=== PATIENT | male | born 1945 | race Hispanic/Latino ===

== ENCOUNTER → 2019-01-25 | Outpatient (CLI) | payer MEDICARE ==
[~2019-01-25] MED LIST: ASPIR 8181 MG PO; COREG3.125 MG PO; FLOMAX0.4 MG PO; METFORMIN HCL500 M1 PO; MOTION SICKNESS25 MG PO; PLAVIX75 MG PO; PRAVACHOL40 MG PO; PROSCAR5 MG PO; TRADJENTA5 MG PO
--- NOTE | 2019-01-25 10:38 | Diagnostic Imaging Report ---
Frontal and lateral views of the chest - 2 images Left clavicle - 2 images HISTORY: PAIN; S/P INJURY COMPARISON: None available. DISCUSSION: An implanted dual-lead left cardiac device. Lungs: The lungs are well inflated. No evidence of a consolidative pneumonia or pulmonary alveolar edema. Pleura: No pleural effusion or pneumothorax. Heart and mediastinum: The cardiomediastinal silhouette appears unremarkable. Multiple mediastinal surgical clips. Bones and soft tissues: Multiple median sternotomy wires, likely nondisplaced fracture of the right side of the third most proximal wire. Multiple metallic anchors at the humeral head. On one view of the clavicle, there is a subtle oblique lucency at the inferior cortex of the medial clavicle, this area is obscured on the remaining images. Mild superior subluxation of the humeral head. IMPRESSION: 1. Questionable nondisplaced fracture involving the medial aspect of the clavicle, correlate for focal point tenderness. 2. Mild age-indeterminate superior subluxation of the humeral head, which can be seen in the setting of a rotator cuff re-tear. If warranted, a follow-up CT arthrogram of the shoulder could be obtained to further evaluate the integrity of the rotator cuff. Signed by: Dr. Farhad Siu D.O., M.M.M. on 01/25/2019 10:34 AM
== END ==
LOC: RAD 09:20
PROVIDERS: ATTEND Internal Medicine
DX: M25.512 Pain in left shoulder (principal); S42.018A Nondisplaced fracture of sternal end of left clavicle, initial encounter for closed fracture
CPT/HCPCS: 71046

== ENCOUNTER → 2019-04-10 | Outpatient (CLI) | payer MEDICARE ==
--- NOTE | 2019-04-10 12:52 | Diagnostic Imaging Report ---
EXAMINATION: CHEST 2 VIEWS INDICATION: Cough. COMPARISON: Chest radiograph 01/25/2019. FINDINGS: TUBES and LINES: Left-sided AICD with leads overlying the right atrium and right ventricle. LUNGS: Lungs are moderately inflated. There is no evidence of pneumonia or pulmonary edema. Minimal patchy left basilar atelectasis. PLEURA: No pleural effusion or pneumothorax. HEART AND MEDIASTINUM: The cardiomediastinal silhouette is unremarkable. Status post CABG. BONES AND SOFT TISSUES: No acute osseous abnormality. Status post median sternotomy. UPPER ABDOMEN: No free air under the diaphragm. IMPRESSION: No acute radiographic abnormality. Signed by: Dr. Nai Garcia MD on 04/10/2019 12:49 PM
--- NOTE | 2019-04-10 12:54 | Diagnostic Imaging Report ---
Exam: Paranasal sinus radiographs-6 views History: Cough, congestion. Comparison: None. Findings: The paranasal sinuses appear clear. No evidence of acute fracture or malalignment. Impression: The paranasal sinuses are clear. Signed by: Dr. Nai Garcia MD on 04/10/2019 12:51 PM
== END ==
LOC: RAD 11:44
PROVIDERS: ATTEND Internal Medicine
DX: R05 Cough (principal); R09.81 Nasal congestion
CPT/HCPCS: 70220; 71046

== ENCOUNTER → 2019-05-15 | Day surgery (SDC) | payer MEDICARE ==
[2019-05-08 11:54] LABS: BASOPHILS # (AUTO) 0.1 (0.0-0.1); BASOPHILS % 0.8 % (0.0-1.0); EOSINOPHILS # (AUTO) 0.3 (0.0-0.4); EOSINOPHILS % 3.5 % (0.0-6.0); HEMATOCRIT 46.8 % (38.2-49.6); MEAN CORPUSCULAR HEMOGLOBIN 31.1 pg (28-32); MEAN CORPUSCULAR HGB CONC 32.1 g/dL (31-35); MEAN CORPUSCULAR VOLUME 97.1 fL (81-99); MONOCYTES # (AUTO) 0.7 (0.2-0.8); MONOCYTES % 9.2 % (4.4-11.3); NEUTROPHILS # (AUTO) 4.8 (2.1-6.9); NEUTROPHILS % 61.1 % (38.7-80.0); PLATELET COUNT 220 x10e3/uL (140-360); RED BLOOD COUNT 4.82 x10e6/uL (4.3-5.7); RED CELL DISTRIBUTION WIDTH 12.7 % (11.7-14.4)
[~2019-05-15] MED LIST changes: +ACETAMINOPHEN 1000 MG/100 ML IV ONE; +FENTANYL CITRATE/PF 100MCG/2 ML INJ ONE; +KETOROLAC TROMETHAMINE 30 MG/ML VIAL ONE; +MIDAZOLAM HCL 2 MG/2 ML VIAL ONE; +OR PHACO EYE KIT ONE; +PREOP PHACO EYE KIT ONE
--- OUTSIDE RECORDS SUMMARY | 2019-05-15 11:23 | XMS REPORT ---
Author Author [facility] Address Unknown Phone Unavailable Care Team Providers Care Event Marketing Intern Name Role Phone ROSAURA GEORGE Unavailable Unavailable Problems This patient has no known problems. Allergies, Adverse Reactions, Alerts This patient has no known allergies or adverse reactions. Medications This patient has no known medications. Results Test Description Test Time Test Comments Text Results Atomic Results Result Comments SINUSES (PARANASAL)MIN 3VIEWS 2019-04-10 12:49:[address] [address] Patient Name: LEATHA TOMLINSON MR #: [id number] : 1945 Age/Sex: 73/M Req #: [id number] Adm Physician: Ordered by: ROSAURA GEORGE MD Report #: [id number] Location: [facility] Room/Bed: Procedure: [id number] DX/SINUSES (PARANASAL)MIN 3VIEWS Exam Date: 04/10/19 Exam Time: 1145 REPORT STATUS: Signed Exam: Paranasal sinus radiographs-6 views History: Cough, congestion. Comparison: None. Findings: The paranasal sinuses appear clear. No evidence of acute fracture or malalignment. Impression: The paranasal sinuses are clear. Signed by: Dr. Justa Cooper MD on 04/10/2019 12:51 PM Dictated By: JUSTA COOPER MD 1251 Transcribed By: ELADIO on 04/10/19 1251 COPY TO: ROSAURA GEORGE MD CHEST 2 VIEWS 2019-04-10 12:47:00 [place] [id number] [place] [address] Patient Name: LEATHA TOMLINSON MR #: [id number] : 1945 Age/Sex: 73/M Req #: [id number] Adm Physician: Ordered by: ROSAURA GEORGE MD Report #: [id number] Location: [facility] Room/Bed: Procedure: [id number] DX/CHEST 2 VIEWS Exam Date: 04/10/19 Exam Time: 1145 REPORT STATUS: Signed EXAMINATION: CHEST 2 VIEWS INDICATION: Cough. COMPARISON: Chest radiograph 01/25/2019. FINDINGS: TUBES and LINES: Left-sided AICD with leads overlying the right atrium and right ventricle. LUNGS: Lungs are moderately inflated. There is no evidence of pneumonia or pulmonary edema. Minimal patchy left basilar atelectasis. PLEURA: No pleural effusion or pneumothorax. HEART AND MEDIASTINUM: The cardiomediastinal silhouette is unremarkable. Status post CABG. BONES AND SOFT TISSUES: No acute osseous abnormality. Status post median sternotomy. UPPER ABDOMEN: No free air under the diaphragm. IMPRESSION: No acute radiographic abnormality. Signed by: Dr. Justa Cooper MD on 04/10/2019 12:49 PM Dictated By: JUSTA COOPER MD 1249 Transcribed By: ELADIO on 04/10/19 1249 COPY TO: ROSAURA GEORGE MD CLAVICLE LEFT 2019-01-25 10:17:00 [facility] [place] [address] Patient Name: LEATHA TOMLINSON MR #: [id number] : 1945 Age/Sex: 73/M Req #: [id number] Adm Physician: Ordered by: ROSAURA GEORGE MD Report #: [id number] Location: [facility] Room/Bed: Procedure: [id number] DX/CLAVICLE LEFT Exam Date: Exam Time: REPORT STATUS: Signed Frontal and lateral views of the chest - 2 images Left clavicle - 2 images HISTORY: PAIN; S/P INJURY COMPARISON: None available. DISCUSSION: An implanted dual-lead left cardiac device. Lungs: The lungs are well inflated. No evidence of a consolidative pneumonia or pulmonary alveolar edema. Pleura: No pleural effusion or pneumothorax. Heart and mediastinum: The cardiomediastinal silhouette appears unremarkable. Multiple mediastinal surgical clips. Bones and soft tissues: Multiple median sternotomy wires, likely nondisplaced fracture of the right side of the third most proximal wire. Multiple metallic anchors at the humeral head. On one view of the clavicle, there is a subtle oblique lucency at the inferior cortex of the medial clavicle, this area is obscured on the remaining images. Mild superior subluxation of the humeral head. IMPRESSION: 1. Questionable nondisplaced fracture involving the medial aspect of the clavicle, correlate for focal point tenderness. 2. Mild age-indeterminate superior subluxation of the humeral head, which can be seen in the setting of a rotator cuff re-tear. If warranted, a follow-up CT arthrogram of the shoulder could be obtained to further evaluate the integrity of the rotator cuff. Signed by: Nahid ZaiidO., M.M.M. on 01/25/2019 10:34 AM Dictated By: BIRGIT SIU DO 1034 Transcribed By: ELADIO on 01/25/19 1034 COPY TO: ROSAURA GEORGE MD CHEST 2 VIEWS 2019-01-25 10:17:00 [place] [address] Patient Name: LEATHA TOMLINSON MR #: [id number] : 1945 Age/Sex: 73/M Req #: [id number] Adm Physician: Ordered by: ROSAURA GEORGE MD Report #: [id number] Location: [facility] Room/Bed: Procedure: [id number] DX/CHEST 2 VIEWS Exam Date: Exam Time: REPORT STATUS: Signed Frontal and lateral views of the chest - 2 images Left clavicle - 2 images HISTORY: PAIN; S/P INJURY COMPARISON: None available. DISCUSSION: An implanted dual-lead left cardiac device. Lungs: The lungs are well inflated. No evidence of a consolidative pneumonia or pulmonary alveolar edema. Pleura: No pleural effusion or pneumothorax. Heart and mediastinum: The cardiomediastinal silhouette appears unremarkable. Multiple mediastinal surgical clips. Bones and soft tissues: Multiple median sternotomy wires, likely nondisplaced fracture of the right side of the third most proximal wire. Multiple metallic anchors at the humeral head. On one view of the clavicle, there is a subtle oblique lucency at the inferior cortex of the medial clavicle, this area is obscured on the remaining images. Mild superior subluxation of the humeral head. IMPRESSION: 1. Questionable nondisplaced fracture involving the medial aspect of the clavicle, correlate for focal point tenderness. 2. Mild age-indeterminate superior subluxation of the humeral head, which can be seen in the setting of a rotator cuff re-tear. If warranted, a follow-up CT arthrogram of the shoulder could be obtained to further evaluate the integrity of the rotator cuff. Signed by: Dr. Birgit Siu D.O., M.M.M. on 01/25/2019 10:34 AM Dictated By: IBRGIT SIU DO 1034 Transcribed By: ELADIO on 01/25/19 1034 COPY TO: ROSAURA GEORGE MD
[2019-05-15 13:50] VITALS: BP 109/75
== END | disposition home or self-care (01) ==
LOC: OR 10:13
PROVIDERS: ATTEND Ophthalmology
DX: H25.11 Age-related nuclear cataract, right eye (principal); I25.810 Atherosclerosis of coronary artery bypass graft(s) without angina pectoris; I10 Essential (primary) hypertension; E78.5 Hyperlipidemia, unspecified; E11.9 Type 2 diabetes mellitus without complications; Z01.812 Encounter for preprocedural laboratory examination; Z79.4 Long term (current) use of insulin; Z79.02 Long term (current) use of antithrombotics/antiplatelets; Z79.82 Long term (current) use of aspirin; Z79.84 Long term (current) use of oral hypoglycemic drugs; Z95.1 Presence of aortocoronary bypass graft; Z95.810 Presence of automatic (implantable) cardiac defibrillator
CPT/HCPCS: 36415 ×2; 66984; 82948; 85025; J0131; J1885; J2250; J3010; V2787

== ENCOUNTER → 2019-06-05 | Day surgery (SDC) | payer MEDICARE ==
[~2019-06-05] MED LIST changes: -ACETAMINOPHEN 1000 MG/100 ML IV ONE; -KETOROLAC TROMETHAMINE 30 MG/ML VIAL ONE
[2019-06-05 13:15] VITALS: BP 114/73
== END | disposition home or self-care (01) ==
LOC: OR 10:10
PROVIDERS: ATTEND Ophthalmology
DX: H25.12 Age-related nuclear cataract, left eye (principal); E11.9 Type 2 diabetes mellitus without complications; I25.2 Old myocardial infarction; I25.810 Atherosclerosis of coronary artery bypass graft(s) without angina pectoris; I10 Essential (primary) hypertension; E78.5 Hyperlipidemia, unspecified; N40.0 Benign prostatic hyperplasia without lower urinary tract symptoms; Z79.4 Long term (current) use of insulin; Z79.84 Long term (current) use of oral hypoglycemic drugs; Z79.02 Long term (current) use of antithrombotics/antiplatelets; Z79.82 Long term (current) use of aspirin; Z95.1 Presence of aortocoronary bypass graft; Z95.810 Presence of automatic (implantable) cardiac defibrillator
CPT/HCPCS: 36415; 66984; 82948; J2250; J3010; C1780; V2632

== ENCOUNTER → 2020-04-09 | Day surgery (SDC) | payer MEDICARE, OTHER ==
[2020-04-04 16:19] LABS: BASOPHILS % 0.5 % (0.0-1.0); EOSINOPHILS # (AUTO) 0.1 (0.0-0.4); EOSINOPHILS % 1.1 % (0.0-6.0); HEMATOCRIT 44.3 % (38.2-49.6); HEMOGLOBIN 14.6 g/dL (14.0-18.0); LYMPHOCYTES % 22.7 % (18.0-39.1); MEAN CORPUSCULAR HEMOGLOBIN 32.1 pg (28-32); MEAN CORPUSCULAR VOLUME 97.4 fL (81-99); MONOCYTES # (AUTO) 0.8 (0.2-0.8); MONOCYTES % 8.7 % (4.4-11.3); NEUTROPHILS # (AUTO) 5.9 (2.1-6.9); NEUTROPHILS % 66.5 % (38.7-80.0); PLATELET COUNT 180 x10e3/uL (140-360); RED BLOOD COUNT 4.55 x10e6/uL (4.3-5.7); RED CELL DISTRIBUTION WIDTH 12.4 % (11.7-14.4)
[~2020-04-09] MED LIST changes: -FENTANYL CITRATE/PF 100MCG/2 ML INJ ONE; +HYOSCYAMINE 0.125 MG TAB ONE; +INSULIN REGULAR, HUMAN 100 UNIT/1 ML 3ML VIAL ONE; +LEVEMIR FL100 UNIT/1 SC; -MIDAZOLAM HCL 2 MG/2 ML VIAL ONE; -OR PHACO EYE KIT ONE; -PREOP PHACO EYE KIT ONE; +PROPOFOL IV EMULSION 10 MG/ML 20 ML VIAL ONE; +[UNRECOGNIZED DRUG - OTHER] SC
[2020-04-09 13:15] VITALS: BP 113/71
[2020-04-09 13:25] LABS: ANION GAP 14.1 mmol/L (8-16); BLOOD UREA NITROGEN 20 mg/dL (7-26); BUN/CREATININE RATIO 20 (6-25); CALCIUM 9.2 mg/dL (8.4-10.2); CARBON DIOXIDE 24 mmol/L (22-29); CHLORIDE 106 mmol/L (98-107); CREATININE, SERUM 1.01 mg/dL (0.72-1.25); EST GLOMERULAR FILTRATION RATE > 60 ML/MIN (60-); GLUCOSE 164 mg/dL (74-118); POTASSIUM 5.1 mmol/L (3.5-5.1); SODIUM 139 mmol/L (136-145)
--- NOTE | 2020-04-09 15:33 | Operative Report ---
DATE OF PROCEDURE: 04/09/2020 SURGEON: Buster Stevenson MD PROCEDURE: Colonoscopy with polypectomy and biopsies. INDICATIONS FOR COLONOSCOPY: Colorectal cancer screening. MEDICATIONS: The patient was done under MAC, please see anesthesiologist's note. PROCEDURE IN DETAIL: With the patient in left lateral decubitus position, a flexible fiberoptic Olympus colonoscope was inserted into the rectum with ease and advanced all the way to the cecum. It was then withdrawn slowly, mucosa overlying the cecum and ascending colon appeared to be within normal limits. A minute polyp was hot biopsied from the transverse colon. An approximately 5 mm polyp was removed per cold snare polypectomy from the proximal descending colon. Diverticular disease was noted in the descending and the sigmoid colon. The semi circumferential mass was noted at the rectosigmoid area and biopsies for permanent section and frozen section were obtained. Also, site was tattooed. An approximately 6 mm sessile polyp in the proximal rectum was removed per snare electrocautery. The scope was then retroflexed into the distal rectum. Small internal hemorrhoids were noted, none of which was actively bleeding. The scope was then straightened out, it was subsequently withdrawn. The patient tolerated the procedure well. IMPRESSION: 1. Transverse colon polyp, hot biopsied. 2. Descending colon polyp approximately 5 mm in size, cold snared. 3. Diverticulosis. 4. Semi circumferential mass rectosigmoid area, biopsies obtained for frozen section and permanent section. 5. Rectal polyp, proximal rectum, removed per hot snare polypectomy. 6. Internal hemorrhoids, none actively bleeding. PLAN: 1. Follow up histology. 2. We will need CT of abdomen and pelvis. 3. General surgical consultation. 4. The patient will need a followup colonoscopy 1 year after surgery. Buster Stevenson MD [facility]/MODL /[id number] cc: Evon Marcus MD
== END | disposition home or self-care (01) ==
LOC: OR 08:52
PROVIDERS: ATTEND Internal Medicine Gastroenterology
DX: Z12.11 Encounter for screening for malignant neoplasm of colon (principal); D12.7 Benign neoplasm of rectosigmoid junction; D12.4 Benign neoplasm of descending colon; D12.3 Benign neoplasm of transverse colon; K62.1 Rectal polyp; K57.30 Diverticulosis of large intestine without perforation or abscess without bleeding; K64.8 Other hemorrhoids; I34.0 Nonrheumatic mitral (valve) insufficiency; I25.810 Atherosclerosis of coronary artery bypass graft(s) without angina pectoris; I42.9 Cardiomyopathy, unspecified; I49.1 Atrial premature depolarization; I45.10 Unspecified right bundle-branch block; I10 Essential (primary) hypertension; E11.9 Type 2 diabetes mellitus without complications; Z01.810 Encounter for preprocedural cardiovascular examination; Z01.812 Encounter for preprocedural laboratory examination; Z11.59 Encounter for screening for other viral diseases; Z79.02 Long term (current) use of antithrombotics/antiplatelets; Z79.82 Long term (current) use of aspirin; Z79.84 Long term (current) use of oral hypoglycemic drugs; Z79.4 Long term (current) use of insulin; Z68.26 Body mass index [BMI] 26.0-26.9, adult; Z95.1 Presence of aortocoronary bypass graft; Z95.0 Presence of cardiac pacemaker
CPT/HCPCS: 36415 ×2; 45380; 45381; 45384; 45385; 80048; 82948; 85025; 87635; 88305; 88331; 93005; J2704; 45378; J1817

== ENCOUNTER → 2020-04-10 | Outpatient (CLI) | payer MEDICARE ==
[~2020-04-10] MED LIST changes: +DIATRIZOATE MEGL/DIATRIZOA SOD 30 ML BTL PO ONE; -HYOSCYAMINE 0.125 MG TAB ONE; -INSULIN REGULAR, HUMAN 100 UNIT/1 ML 3ML VIAL ONE; +IOPAMIDOL 370 MG/ML 200 ML INFUS..BTL INJ ONE; -PROPOFOL IV EMULSION 10 MG/ML 20 ML VIAL ONE; +SODIUM CHLORIDE 0.9% 50ML 50 ML ONE
--- NOTE | 2020-04-10 18:10 | Diagnostic Imaging Report ---
EXAM: CT Abdomen and Pelvis WITH contrast INDICATION: ^[id number] ^1720 ^MASS IN RECTAL SIGMOID COMPARISON: None. TECHNIQUE: Abdomen and pelvis were scanned utilizing a multidetector helical scanner from the lung base to the pubic symphysis after administration of IV contrast. Coronal and sagittal reformations were obtained. Routine protocol was performed. Scan was performed when during portal venous phase. Dose modulation, iterative reconstruction, and/or weight based adjustment of the mA/kV was utilized to reduce the radiation dose to as low as reasonably achievable. IV CONTRAST: 100 mL of Isovue-370 ORAL CONTRAST: Gastrografin RADIATION DOSE: Total DLP: 450.93 mGy*cm Estimated effective dose: (DLP x 0.015 x size factor) mSv COMPLICATIONS: None FINDINGS: LINES and TUBES: Intracardiac leads extending to the right atrium and right ventricular apex. LOWER THORAX: Lung bases are clear. There is calcified granuloma left lower lobe. Mild cardiomegaly. HEPATOBILIARY: Diffuse low density hepatic parenchyma which may be seen with steatosis. No focal hepatic lesions. No biliary ductal dilation. GALLBLADDER: No radio-opaque stones or sludge. No wall thickening. SPLEEN: No splenomegaly. PANCREAS: No focal masses or ductal dilatation. There is a small calcification in the body of pancreas. ADRENALS: No adrenal nodules KIDNEYS/URETERS: Kidneys enhance symmetrically. No hydronephrosis. No cystic or solid mass lesions. No stones. There is a small cortical defect of the lower pole left kidney which may represent scar from previous inflammation. GI TRACT: There is wall thickening of the distal sigmoid and rectum (series 2, image 73) approximately 6 cm in length. There is diverticulosis involving the distal descending colon, proximal and mid sigmoid with no CT evidence for diverticulitis. The appendix is not visualized and there are likely sutures or surgical clips at the cecal pole suggesting prior appendectomy. Correlation with surgical history suggested. There is no inflammatory stranding in the right lower quadrant. PELVIC ORGANS/BLADDER: There is circumferential wall thickening of the urinary bladder which may be accentuated by nondistention. However, the prostate is enlarged measuring 6.2 x 4.7 cm transversely and it indents the bladder base. There is an area of enhancement seen in the right side of the prostate. LYMPH NODES: No dominant lymph node mass seen in the abdomen, retroperitoneum or pelvis. A nonspecific 6 mm node is seen in the right pericardial fat (series 2, image 11). VESSELS: The abdominal aorta is atherosclerotic with scattered calcified plaque. No aneurysm or dissection. Celiac, SMA and STACI are patent. Densely calcified plaques are seen at the ostia of the SMA and renal arteries. IVC and portal system appear unremarkable. PERITONEUM / RETROPERITONEUM: No pneumoperitoneum or ascites. BONES: No acute or suspicious bony lesion. There is marked degenerative change in the lumbar spine. There is severe disc space narrowing at L3-4 and 50% age-indeterminate compression of L1. Wire sternotomy sutures are seen. SOFT TISSUES: Superficial surrounding soft tissue shows no specific abnormality. Soft tissue thickening near the right inguinal canal may represent change from previous hernia repair. No inguinal lymphadenopathy is seen. IMPRESSION: 1. There is an area of circumferential wall thickening involving the distal sigmoid and rectosigmoid junction. This may be neoplastic or inflammatory. Correlation with sigmoidoscopy or colonoscopy is suggested. 2. The prostate is enlarged with a focal area of enhancement on the right side of the prostate. Consider prostate evaluation with MRI, ultrasound or biopsy. Circumferential bladder wall thickening may relate to outlet obstruction. 3. Nonspecific calcification in the body may relate to previous pancreatitis. 4. Moderately advanced aortic atherosclerosis with plaques at the ostia of the SMA and renal arteries. Staff: Liseth Signed by: Dr. Lucho Childers M.D. on 04/10/2020 6:07 PM
== END ==
LOC: CT 15:59
PROVIDERS: ATTEND Internal Medicine Gastroenterology
DX: K63.5 Polyp of colon (principal); K62.1 Rectal polyp
CPT/HCPCS: 74177; Q9967

== ENCOUNTER 2020-10-15 05:23 | Inpatient (IN) | payer MEDICARE ==
[2020-10-13 11:49] LABS: BASOPHILS # (AUTO) 0.1 (0.0-0.1); BASOPHILS % 0.6 % (0.0-1.0); EOSINOPHILS # (AUTO) 0.1 (0.0-0.4); EOSINOPHILS % 1.3 % (0.0-6.0); HEMATOCRIT 48.2 % (38.2-49.6); HEMOGLOBIN 15.8 g/dL (14.0-18.0); LYMPHOCYTES # (AUTO) 2.5 (1.0-3.2); LYMPHOCYTES % 28.4 % (18.0-39.1); MEAN CORPUSCULAR HEMOGLOBIN 31.8 pg (28-32); MEAN CORPUSCULAR HGB CONC 32.8 g/dL (31-35); MONOCYTES # (AUTO) 0.7 (0.2-0.8); MONOCYTES % 7.5 % (4.4-11.3); NEUTROPHILS # (AUTO) 5.5 (2.1-6.9); PLATELET COUNT 220 x10e3/uL (140-360); RED BLOOD COUNT 4.97 x10e6/uL (4.3-5.7); RED CELL DISTRIBUTION WIDTH 11.9 % (11.7-14.4)
[2020-10-13 12:16] LABS: ALANINE AMINOTRANSFERASE 25 IU/L (0-55); ALBUMIN 4.3 g/dL (3.5-5.0); ALBUMIN/GLOBULIN RATIO 1.3 (0.8-2.0); ALKALINE PHOSPHATASE 73 IU/L (40-150); ANION GAP 14.2 mmol/L (8-16); BLOOD UREA NITROGEN 25 mg/dL (7-26); BUN/CREATININE RATIO 24 (6-25); CALCIUM 9.6 mg/dL (8.4-10.2); CARBON DIOXIDE 28 mmol/L (22-29); CHLORIDE 100 mmol/L (98-107); CREATININE, SERUM 1.03 mg/dL (0.72-1.25); EST GLOMERULAR FILTRATION RATE > 60 ML/MIN (60-); GLUCOSE 168 mg/dL (74-118); POTASSIUM 5.2 mmol/L (3.5-5.1); SODIUM 137 mmol/L (136-145)
[~2020-10-15] VITALS: Ht 172.7 cm; Wt 79.4 kg
[~2020-10-15 05:23] MED LIST changes: -DIATRIZOATE MEGL/DIATRIZOA SOD 30 ML BTL PO ONE; +FUROSEMIDE40 MG PO; +HUMALOG100 UNIT/1 SQ; -IOPAMIDOL 370 MG/ML 200 ML INFUS..BTL INJ ONE; +LISINOPRIL5 MG PO; +METOPROLOL SUCC25 MG PO; +MONTELUKAST SOD10 MG PO; -SODIUM CHLORIDE 0.9% 50ML 50 ML ONE
[2020-10-15] MEDS ORDERED: HEPARIN SOD/SOD CHLORIDE 1,000 ML ONE (06:40)
[2020-10-15] MEDS ORDERED: MINERAL OIL STERILE 10ML VIAL ONE (09:06)
[2020-10-15] MEDS: SODIUM CHLORIDE 0.9% 250ML IRRIG IR SCH ×4 (11:45→23:45)
[2020-10-15] MEDS ORDERED: ONDANSETRON HCL INJ 2MG/ML 2ML 2 MG/ML VIAL IV PRN (11:45)
[2020-10-15] MEDS ORDERED: HYDROMORPHONE 1MG/1ML INJ IV PRN ×3 (11:45→13:15)
[2020-10-15] MEDS ORDERED: NITROGLYCERIN 2% OINT 1 GM PKT TOP SCH (12:00)
[2020-10-15] MEDS: INSULIN REGULAR, HUMAN 100 UNIT/1 ML 3ML VIAL SQ SCH ×3 (12:00→23:56)
[2020-10-15] MEDS ORDERED: ONDANSETRON HCL INJ 2MG/ML 2ML 2 MG/ML VIAL ONE (12:22)
[2020-10-15] MEDS ORDERED: ATROPINE SULFATE 1 MG/ML VIAL ONE (12:22)
[2020-10-15] MEDS ORDERED: PROPOFOL IV EMULSION 10 MG/ML 20 ML VIAL ONE (12:22)
[2020-10-15] MEDS ORDERED: ROCURONIUM BROMIDE 10 MG/ML 5ML VIAL IV ONE (12:22)
[2020-10-15] MEDS ORDERED: LIDOCAINE HCL 2% LOCAL INJ 5 ML SDV VIAL INJ ONE (12:22)
[2020-10-15] MEDS ORDERED: CEFOXITIN SOD 1 GM VIAL ONE (12:22)
[2020-10-15] MEDS ORDERED: EPHEDRINE SULFATE INJ 50 MG/ML VIAL ONE (12:22)
[2020-10-15] MEDS ORDERED: KETOROLAC TROMETHAMINE 30 MG/ML VIAL ONE (12:22)
[2020-10-15] MEDS ORDERED: DEXAMETHASONE SOD PHOS INJ 4 MG/ML VIAL ONE (12:22)
[2020-10-15] MEDS ORDERED: SEVOFLURANE INHAL SOLN 250 ML PEN BTL ONE (12:22)
[2020-10-15] MEDS ORDERED: NEOSTIGMINE 1 MG/ML 10ML VIAL ONE (12:22)
[2020-10-15] MEDS ORDERED: ROPIVACAINE 0.5% 5 MG/ML 30 ML SDV ONE (12:29)
[2020-10-15] MEDS ORDERED: KETOROLAC TROMETHAMINE 30 MG/ML VIAL IV PRN (13:00)
[2020-10-15] MEDS ORDERED: ACETAMINOPHEN 1000 MG/100 ML IV PRN ×2 (13:15→17:00)
[2020-10-15] MEDS ORDERED: MIDAZOLAM HCL 2 MG/2 ML VIAL ONE (13:27)
[2020-10-15] MEDS ORDERED: FENTANYL CITRATE/PF 100MCG/2 ML INJ ONE (13:27)
[2020-10-15] MEDS: SUFENTA EPI PRN (14:30)
[2020-10-15] MEDS: NS EPI PRN (14:30)
[2020-10-15] MEDS: ROPIVACAINE EPI PRN (14:30)
[2020-10-15] MEDS ORDERED: DIPHENHYDRAMINE HCL INJ 50 MG/ML VIAL ONE (15:09)
[2020-10-15 16:10] VITALS: BP 117/71
[2020-10-15 16:16] VITALS: BP 117/71
[2020-10-15 16:31] VITALS: BP 117/71
[2020-10-15] MEDS: PANTOPRAZOLE 40 MG 10ML VIAL IV SCH (16:43)
[2020-10-15] MEDS: SODIUM CHLORIDE 0.9% 1000ML 1,000 ML IV SCH ×2 (16:43→21:54)
[2020-10-15] MEDS: CARVEDILOL 3.125 MG TAB PO SCH (16:44)
[2020-10-15] MEDS: CEFOXITIN 1GM/0.9% NS 50ML 50 ML IV SCH ×2 (17:27→23:46)
[2020-10-15 20:00] VITALS: BP 108/64
[2020-10-15 21:07] VITALS: BP 108/64
[2020-10-16] VITALS (7 sets, daily range): BP systolic 103–138; BP diastolic 58–79
[2020-10-16] MEDS: SODIUM CHLORIDE 0.9% 250ML IRRIG IR SCH ×6 (03:46→23:50)
[2020-10-16] MEDS: INSULIN REGULAR, HUMAN 100 UNIT/1 ML 3ML VIAL SQ SCH ×3 (06:00→17:15)
[2020-10-16] MEDS: SODIUM CHLORIDE 0.9% 1000ML 1,000 ML IV SCH ×2 (07:51→16:05)
[2020-10-16] MEDS: CARVEDILOL 3.125 MG TAB PO SCH ×2 (08:21→17:11)
[2020-10-16] MEDS ORDERED: METOPROLOL SUCCINATE 25 MG TAB XL PO SCH (09:00)
[2020-10-16 09:11] LABS: BASOPHILS % 0.2 % (0.0-1.0); HEMATOCRIT 38.9 % (38.2-49.6); HEMOGLOBIN 12.6 g/dL (14.0-18.0); LYMPHOCYTES # (AUTO) 0.9 (1.0-3.2); LYMPHOCYTES % 8.2 % (18.0-39.1); MEAN CORPUSCULAR HEMOGLOBIN 31.9 pg (28-32); MEAN CORPUSCULAR HGB CONC 32.4 g/dL (31-35); MEAN CORPUSCULAR VOLUME 98.5 fL (81-99); MONOCYTES % 8.4 % (4.4-11.3); NEUTROPHILS # (AUTO) 9.5 (2.1-6.9); NEUTROPHILS % 82.7 % (38.7-80.0); PLATELET COUNT 180 x10e3/uL (140-360); RED BLOOD COUNT 3.95 x10e6/uL (4.3-5.7)
[2020-10-16 09:48] LABS: ANION GAP 13.3 mmol/L (8-16); BLOOD UREA NITROGEN 35 mg/dL (7-26); BUN/CREATININE RATIO 30 (6-25); CALCIUM 7.5 mg/dL (8.4-10.2); CARBON DIOXIDE 22 mmol/L (22-29); CHLORIDE 105 mmol/L (98-107); CREATININE, SERUM 1.18 mg/dL (0.72-1.25); EST GLOMERULAR FILTRATION RATE > 60 ML/MIN (60-); GLUCOSE 297 mg/dL (74-118); POTASSIUM 5.3 mmol/L (3.5-5.1); SODIUM 135 mmol/L (136-145)
[2020-10-16] MEDS: PANTOPRAZOLE 40 MG 10ML VIAL IV SCH (16:05)
[2020-10-17] VITALS (8 sets, daily range): BP systolic 114–146; BP diastolic 69–97
[2020-10-17] MEDS: SODIUM CHLORIDE 0.9% 250ML IRRIG IR SCH ×2 (03:45→07:45)
[2020-10-17] MEDS: INSULIN REGULAR, HUMAN 100 UNIT/1 ML 3ML VIAL SQ SCH ×4 (05:57→18:00)
[2020-10-17 08:56] LABS: BASOPHILS % 0.2 % (0.0-1.0); EOSINOPHILS % 0.3 % (0.0-6.0); HEMOGLOBIN 12.8 g/dL (14.0-18.0); LYMPHOCYTES # (AUTO) 1.6 (1.0-3.2); LYMPHOCYTES % 13.7 % (18.0-39.1); MEAN CORPUSCULAR HEMOGLOBIN 32.1 pg (28-32); MEAN CORPUSCULAR VOLUME 100.3 fL (81-99); MONOCYTES % 8.3 % (4.4-11.3); NEUTROPHILS # (AUTO) 8.8 (2.1-6.9); NEUTROPHILS % 77.1 % (38.7-80.0); PLATELET COUNT 171 x10e3/uL (140-360); RED BLOOD COUNT 3.99 x10e6/uL (4.3-5.7); RED CELL DISTRIBUTION WIDTH 12.3 % (11.7-14.4)
[2020-10-17] MEDS: CARVEDILOL 3.125 MG TAB PO SCH ×2 (09:00→17:00)
[2020-10-17] MEDS: SODIUM CHLORIDE 0.9% 1000ML 1,000 ML IV SCH ×2 (09:15)
[2020-10-17 09:18] LABS: ANION GAP 12.6 mmol/L (8-16); BLOOD UREA NITROGEN 28 mg/dL (7-26); BUN/CREATININE RATIO 34 (6-25); CALCIUM 7.8 mg/dL (8.4-10.2); CARBON DIOXIDE 21 mmol/L (22-29); CHLORIDE 108 mmol/L (98-107); CREATININE, SERUM 0.83 mg/dL (0.72-1.25); EST GLOMERULAR FILTRATION RATE > 60 ML/MIN (60-); GLUCOSE 192 mg/dL (74-118); POTASSIUM 4.6 mmol/L (3.5-5.1); SODIUM 137 mmol/L (136-145)
[2020-10-17] MEDS: PANTOPRAZOLE 40 MG 10ML VIAL IV SCH (18:02)
[2020-10-17] MEDS: ROPIVACAINE EPI PRN (19:41)
[2020-10-17] MEDS: SUFENTA EPI PRN (19:41)
[2020-10-17] MEDS: NS EPI PRN (19:41)
[2020-10-18] VITALS (8 sets, daily range): BP systolic 106–146; BP diastolic 72–85
[2020-10-18] MEDS: INSULIN REGULAR, HUMAN 100 UNIT/1 ML 3ML VIAL SQ SCH ×5 (00:25→20:52)
[2020-10-18] MEDS: SODIUM CHLORIDE 0.9% 1000ML 1,000 ML IV SCH ×3 (00:50→22:47)
[2020-10-18 06:12] LABS: BASOPHILS # (AUTO) 0.1 (0.0-0.1); BASOPHILS % 0.4 % (0.0-1.0); EOSINOPHILS # (AUTO) 0.1 (0.0-0.4); EOSINOPHILS % 0.4 % (0.0-6.0); HEMATOCRIT 39.6 % (38.2-49.6); HEMOGLOBIN 12.7 g/dL (14.0-18.0); LYMPHOCYTES % 16.5 % (18.0-39.1); MEAN CORPUSCULAR HEMOGLOBIN 32.1 pg (28-32); MEAN CORPUSCULAR HGB CONC 32.1 g/dL (31-35); MONOCYTES % 8.6 % (4.4-11.3); NEUTROPHILS # (AUTO) 8.8 (2.1-6.9); NEUTROPHILS % 73.8 % (38.7-80.0); PLATELET COUNT 162 x10e3/uL (140-360); RED BLOOD COUNT 3.96 x10e6/uL (4.3-5.7); RED CELL DISTRIBUTION WIDTH 11.9 % (11.7-14.4)
[2020-10-18 06:30] LABS: ANION GAP 15.4 mmol/L (8-16); BLOOD UREA NITROGEN 24 mg/dL (7-26); BUN/CREATININE RATIO 32 (6-25); CALCIUM 7.7 mg/dL (8.4-10.2); CARBON DIOXIDE 20 mmol/L (22-29); CHLORIDE 109 mmol/L (98-107); CREATININE, SERUM 0.76 mg/dL (0.72-1.25); EST GLOMERULAR FILTRATION RATE > 60 ML/MIN (60-); GLUCOSE 170 mg/dL (74-118); POTASSIUM 4.4 mmol/L (3.5-5.1); SODIUM 140 mmol/L (136-145)
[2020-10-18] MEDS: CARVEDILOL 3.125 MG TAB PO SCH ×2 (09:56→17:54)
[2020-10-18] MEDS: PANTOPRAZOLE 40 MG 10ML VIAL IV SCH (17:54)
[2020-10-18] MEDS: HYDROCODONE/APAP 7.5MG-325MG 1 EA TAB PO PRN ×2 (19:45→23:45)
[2020-10-18] MEDS: BISACODYL 10 MG SUPP PR SCH (19:55)
[2020-10-19] VITALS (8 sets, daily range): BP systolic 107–160; BP diastolic 67–90
[2020-10-19] MEDS: INSULIN REGULAR, HUMAN 100 UNIT/1 ML 3ML VIAL SQ SCH ×4 (07:30→20:30)
[2020-10-19] MEDS: HYDROCODONE/APAP 7.5MG-325MG 1 EA TAB PO PRN ×2 (09:21→17:35)
[2020-10-19] MEDS: ASPIRIN 81 MG CHEW TAB PO SCH (09:22)
[2020-10-19] MEDS: CARVEDILOL 3.125 MG TAB PO SCH ×2 (09:22→17:35)
[2020-10-19] MEDS: BISACODYL 10 MG SUPP PR SCH (09:23)
[2020-10-19] MEDS: ATORVASTATIN 20 MG TAB PO SCH (09:23)
[2020-10-19] MEDS: VALSARTAN/SACUBITRIL 24MG/26MG 1 EA TAB PO SCH (14:00)
[2020-10-19] MEDS: PANTOPRAZOLE 40 MG 10ML VIAL IV SCH (17:35)
[2020-10-20] VITALS (7 sets, daily range): BP systolic 101–125; BP diastolic 63–79
[2020-10-20] MEDS: VALSARTAN/SACUBITRIL 24MG/26MG 1 EA TAB PO SCH ×2 (02:00→14:22)
[2020-10-20] MEDS: INSULIN REGULAR, HUMAN 100 UNIT/1 ML 3ML VIAL SQ SCH ×3 (07:30→16:30)
[2020-10-20] MEDS: HYDROCODONE/APAP 7.5MG-325MG 1 EA TAB PO PRN (07:40)
[2020-10-20] MEDS: CARVEDILOL 3.125 MG TAB PO SCH ×2 (08:50→16:37)
[2020-10-20] MEDS: ATORVASTATIN 20 MG TAB PO SCH (08:50)
[2020-10-20] MEDS: ASPIRIN 81 MG CHEW TAB PO SCH (08:50)
[2020-10-20] MEDS ORDERED: CLOPIDOGREL BISULFATE 75 MG TAB PO SCH (09:00)
[2020-10-20] MEDS ORDERED: ONDANSETRON HCL 4 MG ORAL DISINTEGRATING TAB PO PRN (09:45)
[2020-10-20] MEDS: PANTOPRAZOLE 40 MG 10ML VIAL IV SCH (16:37)
[2020-10-20] MEDS ORDERED: TYLENOL # 31 EA PO (19:05)
[2020-10-20] MEDS ORDERED: LEVOFLOXACIN250 MG PO (19:05)
[2020-10-21] MEDS ORDERED: PANTOPRAZOLE SOD 40 MG TABEC PO SCH (07:30)
== END 2020-10-20 20:11 | disposition home or self-care (01) | DRG 345 ==
LOC: OR 05:23 → PACU V 11:40 → IMCU 15:54 → MED/SURG 10-16 15:40
PROVIDERS: ADMIT Surgery; ATTEND Surgery
PROC: 0DBN0ZX Excision of Sigmoid Colon, Open Approach, Diagnostic (ICD-10-PCS; principal; 2020-10-15 07:30)
DX: D37.5 Neoplasm of uncertain behavior of rectum (principal); I50.22 Chronic systolic (congestive) heart failure; I11.0 Hypertensive heart disease with heart failure; E78.5 Hyperlipidemia, unspecified; I25.2 Old myocardial infarction; I25.10 Atherosclerotic heart disease of native coronary artery without angina pectoris; Z95.810 Presence of automatic (implantable) cardiac defibrillator; Z95.1 Presence of aortocoronary bypass graft; E11.9 Type 2 diabetes mellitus without complications; I25.5 Ischemic cardiomyopathy; Z20.828 Contact with and (suspected) exposure to other viral communicable diseases
CPT/HCPCS: 36415; 71045; 71046; 80048; 80053; 82948; 84132; 85025; 88307; 93005; J0461; J0694; J1100; J1170; J1200; J1817; J1885; J2001; J2250; J2405; J2710; J2795; J3010; J7030; U0002

== ENCOUNTER 2021-06-25 11:08 | Emergency (ER) | payer MEDICARE ==
[~2021-06-25] VITALS: Ht 172.7 cm; Wt 79.4 kg
[~2021-06-25 11:08] MED LIST changes: +LEVOFLOXACIN250 MG PO; +TYLENOL # 31 EA PO
[2021-06-25] MEDS ORDERED: CASIRIVIMAB/IMDEVIMAB 10 ML in SODIUM CHLORIDE 0.9% 100 ML IV ONE (11:30)
[2021-06-25 12:15] LABS: BASOPHILS % 0.1 % (0.0-1.0); HEMATOCRIT 41.8 % (38.2-49.6); LYMPHOCYTES # (AUTO) 0.5 (1.0-3.2); LYMPHOCYTES % 5.4 % (18.0-39.1); MEAN CORPUSCULAR HEMOGLOBIN 31.5 pg (28-32); MEAN CORPUSCULAR HGB CONC 33.5 g/dL (31-35); MEAN CORPUSCULAR VOLUME 93.9 fL (81-99); MONOCYTES # (AUTO) 0.4 (0.2-0.8); MONOCYTES % 4.2 % (4.4-11.3); NEUTROPHILS # (AUTO) 8.8 (2.1-6.9); NEUTROPHILS % 89.8 % (38.7-80.0); PLATELET COUNT 195 x10e3/uL (140-360); RED BLOOD COUNT 4.45 x10e6/uL (4.3-5.7); RED CELL DISTRIBUTION WIDTH 12.1 % (11.7-14.4)
[2021-06-25 12:38] LABS: ALBUMIN 3.4 g/dL (3.5-5.0); ALBUMIN/GLOBULIN RATIO 0.9 (0.8-2.0); ANION GAP 17.9 mmol/L (8-16); CALCIUM 8.6 mg/dL (8.4-10.2); CREATININE, SERUM 1.26 mg/dL (0.72-1.25); MAGNESIUM 2.3 MG/DL (1.3-2.1); POTASSIUM 4.9 mmol/L (3.5-5.1)
[2021-06-25 13:14] LABS: CREATINE KINASE MB 0.7 ng/mL (0-5.0)
[2021-06-25 15:28] VITALS: BP 137/62
== END 2021-06-25 16:00 | disposition home or self-care (01) ==
LOC: ER 11:27
DX: R06.02 Shortness of breath (principal); U07.1 COVID-19; E11.65 Type 2 diabetes mellitus with hyperglycemia; I10 Essential (primary) hypertension; I25.10 Atherosclerotic heart disease of native coronary artery without angina pectoris; R94.31 Abnormal electrocardiogram [ECG] [EKG]; Z95.810 Presence of automatic (implantable) cardiac defibrillator; Z95.1 Presence of aortocoronary bypass graft
CPT/HCPCS: 36415; 71045; 80053; 82550; 82553; 83735; 83880; 84484; 85025; 99283; J7050

== ENCOUNTER 2021-06-27 23:16 | Emergency (ER) | payer MEDICARE ==
[~2021-06-27] VITALS: Ht 172.7 cm; Wt 79.4 kg
== END 2021-06-27 23:46 | disposition home or self-care (01) ==
LOC: ER 23:33
DX: G47.00 Insomnia, unspecified (principal); U07.1 COVID-19; I25.810 Atherosclerosis of coronary artery bypass graft(s) without angina pectoris; I10 Essential (primary) hypertension; E11.9 Type 2 diabetes mellitus without complications; Z95.1 Presence of aortocoronary bypass graft; Z95.810 Presence of automatic (implantable) cardiac defibrillator
CPT/HCPCS: 93005; 99283

== ENCOUNTER 2024-10-15 05:05 | Emergency (ER) | payer MEDICARE ==
[~2024-10-15] VITALS: Ht 172.7 cm; Wt 79.4 kg
[2024-10-15 05:09] VITALS: TEMP 97.9
[2024-10-15] MEDS ORDERED: BELLADONNA ALK/PHENOBARBITAL 5 ML UDC ONE (05:22)
[2024-10-15] MEDS ORDERED: LIDOCAINE VISC 2% SOLN 15 ML UDC ONE (05:22)
[2024-10-15] MEDS ORDERED: MAGNESIUM/ALUMINUM/SIMETHICONE 30 ML UDC ONE (05:23)
[2024-10-15] MEDS: DONNATAL/LIDOCAINE/MAALOX 30 ML SUSP PO ONE (05:29)
[2024-10-15] MEDS: ONDANSETRON HCL INJ 2MG/ML 2ML 2 MG/ML VIAL IV STA (05:29)
[2024-10-15] MEDS: FAMOTIDINE 20 MG/2 ML VIAL IV STA (05:29)
[2024-10-15] MEDS: SODIUM CHLORIDE 0.9% 1000ML 1,000 ML IV ONE (05:30)
[2024-10-15 05:31] LABS: BASOPHILS % 0.4 % (0.0-1.0); EOSINOPHILS # (AUTO) 0.1 (0.0-0.4); EOSINOPHILS % 1.7 % (0.0-6.0); HEMATOCRIT 53.8 % (38.2-49.6); HEMOGLOBIN 17.1 g/dL (14.0-18.0); LYMPHOCYTES # (AUTO) 1.5 (1.0-3.2); LYMPHOCYTES % 19.6 % (18.0-39.1); MEAN CORPUSCULAR HEMOGLOBIN 32.9 pg (28-32); MEAN CORPUSCULAR HGB CONC 31.8 g/dL (31-35); MEAN CORPUSCULAR VOLUME 103.5 fL (81-99); MONOCYTES # (AUTO) 0.9 (0.2-0.8); MONOCYTES % 10.9 % (4.4-11.3); NEUTROPHILS # (AUTO) 5.2 (2.1-6.9); PLATELET COUNT 132 x10e3/uL (140-360); RED CELL DISTRIBUTION WIDTH 12.8 % (11.7-14.4)
[2024-10-15 05:46] LABS: ALBUMIN 3.6 g/dL (3.5-5.0); ALBUMIN/GLOBULIN RATIO 1.1 (0.8-2.0); ANION GAP 14.5 mmol/L (8-16); BILIRUBIN,TOTAL 1.4 mg/dL (0.2-1.2); CALCIUM 8.9 mg/dL (8.4-10.2); CREATININE, SERUM 1.3 mg/dL (0.72-1.25); POTASSIUM 4.5 mmol/L (3.5-5.1); TOTAL PROTEIN 6.9 g/dL (6.5-8.1)
[2024-10-15] MEDS ORDERED: IOPAMIDOL 370 MG/ML 100 ML INFUS..BTL INJ ONE (06:08)
[2024-10-15 07:20] VITALS: PULSE 82; RESP 22; O2SAT 100
[2024-10-15] MEDS ORDERED: AMOX TR-K CLV1 EAC2 PO (07:22)
[2024-10-15] MEDS ORDERED: OMEPRAZOLE40 MG PO (07:24)
[2024-10-15 07:43] LABS: CLARITY,URINE CLEAR (CLEAR); COLOR,URINE YELLOW (YELLOW); GLUCOSE, URINE 1+ (NEGATIVE); LEUKOCYTE ESTERASE ,URINE NEGATIVE (NEGATIVE); NITRITE,URINE NEGATIVE (NEGATIVE); PH,URINE 5 (5 - 7); PROTEIN,URINE DIPSTICK 1+ (NEGATIVE)
[2024-10-15 07:44] LABS: BILIRUBIN,URINE NEGATIVE (NEGATIVE); KETONES,URINE NEGATIVE (NEGATIVE); URINE UROBILINOGEN 1 mg/dL (0.2 - 1)
[2024-10-15 07:59] LABS: BACTERIA,URINE FEW /HPF; EPITHELIAL CELLS,URINE RARE /LPF; RBC,URINE 0-5 /HPF (0-5); WBC,URINE (MAN) 0-5 /HPF (0-5)
== END 2024-10-15 07:31 | disposition home or self-care (01) ==
LOC: ER 05:09
DX: R10.13 Epigastric pain (principal); K57.32 Diverticulitis of large intestine without perforation or abscess without bleeding; R14.0 Abdominal distension (gaseous); E11.65 Type 2 diabetes mellitus with hyperglycemia; I10 Essential (primary) hypertension; I25.10 Atherosclerotic heart disease of native coronary artery without angina pectoris; R94.31 Abnormal electrocardiogram [ECG] [EKG]; Z95.1 Presence of aortocoronary bypass graft; Z95.810 Presence of automatic (implantable) cardiac defibrillator
CPT/HCPCS: 36415; 74177; 80053; 81001; 83690; 85025; 93005; 99284; J2405; J7030; Q9967

== ENCOUNTER 2024-10-24 00:22 | Emergency (ER) | payer MEDICARE ==
[~2024-10-24] VITALS: Ht 172.7 cm; Wt 79.4 kg
[~2024-10-24 00:22] MED LIST changes: +AMOX TR-K CLV1 EAC2 PO; +OMEPRAZOLE40 MG PO
[2024-10-24 00:30] VITALS: PULSE 74; RESP 17; TEMP 98; O2SAT 99
[2024-10-24] MEDS ORDERED: HYDROXYZINE HCL25 MG PO (00:42)
[2024-10-24] MEDS: HYDROXYZINE HCL 25 MG TAB PO ONE (00:48)
== END 2024-10-24 00:50 | disposition home or self-care (01) ==
LOC: ER 00:30
DX: G47.00 Insomnia, unspecified (principal); F41.9 Anxiety disorder, unspecified; I10 Essential (primary) hypertension; E11.9 Type 2 diabetes mellitus without complications; I25.10 Atherosclerotic heart disease of native coronary artery without angina pectoris; Z95.1 Presence of aortocoronary bypass graft; Z95.810 Presence of automatic (implantable) cardiac defibrillator
CPT/HCPCS: 99283; J3410

== ENCOUNTER 2025-07-04 20:02 | Emergency (ER) | payer MEDICARE ==
[~2025-07-04] VITALS: Ht 172.7 cm; Wt 79.4 kg
[~2025-07-04 20:02] MED LIST changes: +HYDROXYZINE HCL25 MG PO
[2025-07-04 20:55] VITALS: PULSE 81
[2025-07-04 21:17] LABS: BASOPHILS % 0.7 % (0.0-1.0); EOSINOPHILS % 2.3 % (0.0-6.0); LYMPHOCYTES % 24.4 % (18.0-39.1); MONOCYTES % 8.5 % (4.4-11.3); NEUTROPHILS % 63.4 % (38.7-80.0); RED CELL DISTRIBUTION WIDTH 11.7 % (11.7-14.4)
[2025-07-04 21:31] LABS: EST GLOMERULAR FILTRATION RATE 48.0 ML/MIN (>=60)
[2025-07-04 22:00] VITALS: RESP 20; TEMP 98.8
[2025-07-04 22:22] VITALS: BP 131/58; PULSE 75; RESP 20; O2SAT 100
== END 2025-07-04 22:24 | disposition home or self-care (01) ==
LOC: ER 20:06
DX: R42 Dizziness and giddiness (principal); R94.31 Abnormal electrocardiogram [ECG] [EKG]; I10 Essential (primary) hypertension; E11.65 Type 2 diabetes mellitus with hyperglycemia; Z95.1 Presence of aortocoronary bypass graft; I25.10 Atherosclerotic heart disease of native coronary artery without angina pectoris; Z95.810 Presence of automatic (implantable) cardiac defibrillator
CPT/HCPCS: 36415; 71045; 80053; 82550; 83690; 83880; 84484; 85025; 93005; 99284